=== PATIENT | female | born 1975 | race Caucasian/White ===

== ENCOUNTER 2023-05-07 10:20 | Outpatient (REF) | payer BC, SELFPAY ==
[2023-05-07 11:11] LABS: SARS-CoV-2 Ag POSITIVE (NEGATIVE)
== END 2023-05-07 10:21 | disposition home or self-care (01) ==
LOC: LAB 10:20
PROVIDERS: PCP Nurse Practitioner Family; Visit Provider Nurse Practitioner Family
DX: U07.1 COVID-19 (principal)
CPT/HCPCS: 87811